=== PATIENT | male | born 1945 | race Two or more races ===

== ENCOUNTER → 2017-08-30 | Outpatient (CLI) | payer OTHER | END | disposition home or self-care (01) | LOC: Rad HDHVI 08:38 | PROVIDERS: ATTEND Internal Medicine Cardiovascular Disease | DX: I36.1 Nonrheumatic tricuspid (valve) insufficiency (principal) | CPT/HCPCS: 93306 ==

== ENCOUNTER → 2017-09-06 | Outpatient (CLI) | payer OTHER ==
[~2017-09-06] VITALS: Ht 177.8 cm; Wt 90.7 kg
[~2017-09-06] MED LIST: IOHEXOL 350 MG/ML 100ML IJ ONE
[2017-09-06 10:25] VITALS: BP 139/88
[2017-09-06 10:55] VITALS: BP 146/89
== END | disposition home or self-care (01) ==
LOC: Rad HDHVI 08:06
PROVIDERS: ATTEND Internal Medicine Cardiovascular Disease
DX: I10 Essential (primary) hypertension (principal); I70.1 Atherosclerosis of renal artery; I25.10 Atherosclerotic heart disease of native coronary artery without angina pectoris
CPT/HCPCS: 74175; 78452; 82565; 93017; 96374; 96375; A9500; G0463; Q9967